=== PATIENT | male | born 1995 | race Caucasian/White ===

== ENCOUNTER 2017-01-21 11:45 | Emergency (ER) | payer BC, OTHER ==
[~2017-01-21] VITALS: Ht 168.9 cm; Wt 53.0 kg
[~2017-01-21 11:45] MED LIST: CHLO500T2 PO; CLON0.5T3 PO; MONT1TAB3 PO
[2017-01-21 11:52] VITALS: TEMP 37.8; Ht 168.9 cm; Wt 53.0 kg
[2017-01-21] MEDS ORDERED: HYDR50TA3 PO (12:04)
[2017-01-21] MEDS ORDERED: POTA10CA28 PO (12:07)
[2017-01-21] MEDS ORDERED: QUET1TAB30 PO (12:07)
[2017-01-21] MEDS ORDERED: HYDR25TA4 PO (12:13)
[2017-01-21] MEDS ORDERED: QUET1TAB34 PO (12:15)
--- NOTE | 2017-01-21 12:31 | EMERGENCY ROOM VISIT NOTE ---
ED Visit Note First contact with patient: 12:10 CHIEF COMPLAINT: Left Ankle pain HISTORY OF PRESENT ILLNESS: This 22-year-old male patient presents to the emergency department with his mother, approximately one hour after sustaining an injury to the left ankle when he fell off a curb while walking at school. The patient complains of pain and swelling along the outside of the ankle. The patient denies pain of the foot. The patient is unable to rate the pain due to autism and being nonverbal. The patient is able to bear weight on the foot and his mother states he wanted to walk, foot into the ED versus being put in a wheelchair. Patient was crying at the time of the incident, so mother suspects he was in a significant amount of pain at that time. Pain does seem to increase and become Worse with movement, weight bearing, and the dependent position. No knee pain, the patient is able to move their toes. No numbness or weakness of the foot, no laceration. The patient has not had a previous fracture to this ankle. The patient has taken nothing for the pain, but is currently using ice. The patient denies any other injury. Patient's mother states patient was clammy and shaky immediately after the fall but seems to be doing better at this time. Patient is currently sitting comfortably in a wheelchair. REVIEW OF SYSTEMS: A 6 system review of systems was completed with positives and pertinent negatives listed in the HPI. ALLERGIES: Augmentin MEDICATIONS: See list PMH: See List SOCIAL HISTORY: Patient lives locally with his family. His mother denies alcohol, tobacco, drug use. PHYSICAL EXAM: Vital Signs: Reviewed Nurse's notes, vital signs stable. GENERAL : 22-year-old male, no acute distress, but appears in pain, well-developed, well -nourished. MENTAL STATUS: Alert, oriented to person place and time, and cooperative. MUSCULOSKELETAL: The left ankle is swollen and tender over the lateral malleolus, but the skin is intact and there is no ligamentous instability. There is no fifth metatarsal tenderness. There is no tenderness over the rest of the foot. There is no calf or tibia/fibular tenderness. There is no visual deformity. The foot and toes are warm and well-perfused. Dorsalis pedis pulse 2+. Sensation to pain and light touch is intact. Capillary refill less than 2 seconds. EMERGENCY DEPARTMENT COURSE: I examined the patient. X-rays of the left ankle were reviewed by myself and read by radiology and reveal: DISCUSSION: There is marked lateral soft tissue swelling. No acute fractures are visualized. There is a tiny corticated density adjacent to medial malleolus. This is felt to be old. The ankle mortise appears intact on these nonstress views. IMPRESSION: 1. Marked lateral soft tissue swelling 2. No acute fractures identified. Gel splint was applied to the ankle under my direction and the position was satisfactory. Neurovascular status was rechecked and intact. The patient's mother declines crutches at this time, states pt. will not be able to use them due to autism. The patient was discharged home in good condition. DIAGNOSIS: Left ankle sprain Differential diagnosis: Contusion, fracture, strain DISCHARGE INSTRUCTIONS: Ice and elevation for 2 days, avoid weight bearing as much as possible for the next week, wear the splint anytime you will be up walking around with a sneaker. Do not get the splint wet. Ibuprofen, 600 mg and Tylenol 1000 mg every 6 hours if needed for pain. See your doctor or an orthopedic surgeon if there is no improvement in 4 - 5 days. Current/Historical Medications Scheduled Hydrochlorothiazide (Hctz), 25 MG PO DAILY Montelukast Sodium (Singulair), 10 MG PO HS Potassium Chloride (Micro-K Ext Rel), 10 MEQ PO BID Quetiapine Fumarate (Seroquel), 100 MG PO BID Scheduled PRN Clonazepam (Klonopin), 1-2 TABS PO TID PRN for Anxiety/Agitation Allergies Coded Allergies: Amoxicillin (Unverified Adverse Reaction, Unknown, UNABLE TO SLEEP, 01/21/17 ) Clavulanic Acid (Unverified Adverse Reaction, Unknown, UNABLE TO SLEEP, 01/21/17) Vital Signs Date Time Temp Pulse Resp B/P (MAP) Pulse Ox O2 Delivery O2 Flow Rate FiO2 01/21/17 13:07 105 20 109/64 99 Room Air 01/21/17 11:52 37.8 116 20 117/74 100 Room Air Departure Information Impression Primary Impression: Left ankle sprain Dispostion Home / Self-Care Condition GOOD Referrals Royer Polanco Jr,D.O. (PCP) Patient Instructions [facility] Additional Instructions ORTHOPEDIC INSTRUCTIONS: Ibuprofen(Motrin, Advil) may be used for fever or pain. Use 600mg every six hours as needed. Take with food. Avoid using more than 2400mg in a 24 hour period. Do not use 2400mg per day for more than three consecutive days without physician direction. Prolonged inappropriate use can lead to stomach upset or ulcers. (AND/OR) Acetaminophen(Tylenol) may be used for fever or pain. Use 1000mg every six hours as needed. Avoid using more than 4000mg in a 24 hour period. Ice compresses for 20 minutes at a time four times daily for 2-3 days. Rest and elevate your injury. Do not get the splint wet. If your splint feels excessively tight, you have worsening pain, develop numbness or tingling, or your digits appear blue, loosen the snehal wrap. Then reapply the snehal wrap gently without removing the splint. If your symptoms are not quickly relieved return to the ER for re- evaluation. Return to the ER immediately for any numbness, tingling, severe pain, extreme swelling in the extremity or as needed. Call [facility], [phone], in 3-5 days if no improvement to arrange follow up for your injury. Follow-up with your primary care physician in 2 to 3 days for a recheck of your current condition. Problem Qualifiers Primary Impression: Left ankle sprain Encounter type: initial encounter Involved ligament of ankle: unspecified ligament Qualified Codes: S93.402A - Sprain of unspecified ligament of left ankle, initial encounter
--- NOTE | 2017-01-21 12:49 | DIAGNOSTIC IMAGING REPORT ---
LEFT ANKLE MIN 3 VIEWS ROUTINE CLINICAL HISTORY: Left ankle pain status post trauma COMPARISON: None. DISCUSSION: There is marked lateral soft tissue swelling. No acute fractures are visualized. There is a tiny corticated density adjacent to medial malleolus. This is felt to be old. The ankle mortise appears intact on these nonstress views. IMPRESSION: 1. Marked lateral soft tissue swelling 2. No acute fractures identified. Electronically signed by: Franco Willis M.D. 01/21/2017 12:48 PM Dictated Date/Time: 01/21/2017 12:47 PM
[2017-01-21 13:07] VITALS: BP 109/64; PULSE 105; O2SAT 99
== END 2017-01-21 13:08 | disposition home or self-care (01) ==
LOC: C.EDB 11:46 → C.EDD 13:08
DX: S93.402A Sprain of unspecified ligament of left ankle, initial encounter (principal); W17.89XA Other fall from one level to another, initial encounter; Y92.219 Unspecified school as the place of occurrence of the external cause; Z79.899 Other long term (current) drug therapy; Z88.1 Allergy status to other antibiotic agents; Z88.8 Allergy status to other drugs, medicaments and biological substances

== ENCOUNTER → 2017-08-20 | Outpatient (CLI) | payer OTHER ==
[~2017-08-20] MED LIST changes: -CHLO500T2 PO; -CLON0.5T3 PO; +CLON0.5T9 PO; +HYDR25TA4 PO; +POTA10CA28 PO; +QUET1TAB34 PO
== END | disposition home or self-care (01) ==
LOC: C.LABBC 11:24
PROVIDERS: ATTEND Psychiatry & Neurology Child & Adolescent Psychiatry
DX: F84.0 Autistic disorder (principal)

== ENCOUNTER → 2017-09-05 | Outpatient (CLI) | payer OTHER ==
[~2017-09-05] MED LIST changes: +CLON0.5T3 PO; -CLON0.5T9 PO
[2017-09-05 14:04] LABS: BLOOD UREA NITROGEN 18 mg/dl (7-18); CALCIUM 9.2 mg/dl (8.5-10.1); CARBON DIOXIDE 28 mmol/L (21-32); CREATININE 0.71 mg/dl (0.60-1.40); GLUCOSE 84 mg/dl (70-99); POTASSIUM 3.8 mmol/L (3.5-5.1); SODIUM 139 mmol/L (136-145)
== END | disposition home or self-care (01) ==
LOC: C.LABBC 11:44
DX: N20.0 Calculus of kidney (principal); E60 Dietary zinc deficiency

== ENCOUNTER → 2017-09-10 | Outpatient (CLI) | payer OTHER ==
[2017-09-10 16:59] LABS: BASO % 0.3 %; BASO ABS # 0.02 K/uL (0-0.2); EOS % 1.5 %; HEMATOCRIT 40.6 % (42-52); HEMOGLOBIN 13.9 g/dL (14.0-18.0); IG# 0.01 K/uL (0.00-0.02); LYMPH % 29.7 %; LYMPH ABS # 1.98 K/uL (1.2-3.4); MEAN CELL VOLUME 89.2 fL (80-100); MEAN CORPUSCULAR HEMOGLOBIN 30.5 pg (25-34); MEAN CORPUSCULAR HGB CONC 34.2 g/dl (32-36); MEAN PLATELET VOLUME 10.6 fL (7.4-10.4); MONO % 9.7 %; MONO ABS # 0.65 K/uL (0.11-0.59); NEUT % 58.7 %; NEUT ABS # 3.91 K/uL (1.4-6.5); PLATELET COUNT 247 K/uL (130-400); RED CELL DISTRIBUTION WIDTH CV 13.2 % (11.5-14.5); RED CELL DISTRIBUTION WIDTH SD 43.1 fL (36.4-46.3); WHITE BLOOD COUNT 6.67 K/uL (4.8-10.8)
== END | disposition home or self-care (01) ==
LOC: C.LABBC 15:34
DX: F50.89 Other specified eating disorder (principal)

== ENCOUNTER → 2017-10-14 | Outpatient (CLI) | payer OTHER ==
--- NOTE | 2017-10-14 13:01 | DIAGNOSTIC IMAGING REPORT ---
RENAL ULTRASOUND CLINICAL HISTORY: NEPHROLITHIASIS COMPARISON STUDY: Renal ultrasound December 24, [address] of the abdomen and pelvis January 03, 2016. TECHNIQUE: Sonography of the kidneys and the urinary bladder was performed. FINDINGS: The right kidney measures 10.7 x 5 x 4.7 cm and the left measures 11 x 5.9 x 4.3 cm. There is no hydronephrosis. Renal echogenicity, size and cortical thickness are normal. No renal mass or calculus is identified by sonography. Both ureteral jets are identified. IMPRESSION: Normal renal ultrasound. No hydronephrosis. Electronically signed by: Aba Keita M.D. 10/14/2017 12:59 PM Dictated Date/Time: 10/14/2017 12:58 PM
== END | disposition home or self-care (01) ==
LOC: C.ULTR 12:18
PROVIDERS: ATTEND Internal Medicine Nephrology
DX: N20.0 Calculus of kidney (principal)

== ENCOUNTER → 2018-04-04 | Outpatient (CLI) | payer OTHER ==
[~2018-04-04] MED LIST changes: -CLON0.5T3 PO; +CLON0.5T9 PO
--- NOTE | 2018-04-04 14:44 | DIAGNOSTIC IMAGING REPORT ---
(SAIRA/BLAD)RETROPERITON COMP CLINICAL HISTORY: 23 years-old Male presenting with RENAL CALCULI. TECHNIQUE: Real-time grayscale and limited color Doppler ultrasound imaging of the kidneys and bladder was performed. COMPARISON: 10/14/2017. FINDINGS: Right kidney: Normal echogenicity of renal parenchyma. Right kidney measures 10.0 cm. No hydronephrosis. No convincing evidence of calculus or mass. Left kidney: Normal echogenicity of renal parenchyma. Left kidney measures 10.6 cm. No hydronephrosis. No convincing evidence of calculus or mass. Bladder: Incompletely distended limiting evaluation. Allowing for this, circumferential bladder wall thickening may be present. Bilateral ureteral jets present. Other: None. IMPRESSION: 1. Questionable circumferential bladder wall thickening. This may be due to underdistention, however, correlate with urinalysis to exclude cystitis. 2. No hydronephrosis. No sonographic evidence of calculi. Electronically signed by: Christopher Armenta M.D. 04/04/2018 2:43 PM Dictated Date/Time: 04/04/2018 2:41 PM
== END | disposition home or self-care (01) ==
LOC: C.ULTR 14:11
PROVIDERS: ATTEND Internal Medicine Nephrology
DX: N20.0 Calculus of kidney (principal)